=== PATIENT | female | born 1975 | race Caucasian/White ===

== ENCOUNTER 2016-06-01 11:21 | Emergency (ER) | payer OTHER ==
[~2016-06-01] VITALS: Ht 160 cm; Wt 74.0 kg
[~2016-06-01 11:21] MED LIST: OMEP20CA5 PO; SODITAB PO
[2016-06-01 11:27] VITALS: BP 118/81; PULSE 98; RESP 16; TEMP 98.3; O2SAT 100
--- NOTE | 2016-06-01 11:57 | PD ---
HPI . possible UTI Chief Complaint: Back/ Neck Pain or Injury Time Seen by Provider: 11:57 Travel History International Travel<30 days: No Contact w/Intl Traveler<30days: No Traveled to known affect area: No History of Present Illness HPI 41-year-old female with no significant past medical history here with complaints of lower back pain. Patient tells me that it started around Friday or slightly earlier. She thinks she may have a urinary tract infection. She admits to increased urinary frequency and dysuria. She has had these in the past. She denies any bowel or bladder dysfunction. She denies any saddle anesthesia. She has no other complaints. PFSH Past Medical History Cancer: No Cardiovascular Problems: Yes (HX OF REPAIR OF SEPTAL DEFECT AN ) Diabetes: No Diminished Hearing: No Endocrine: No Gastrointestinal Disorders: No Genitourinary: No Hepatitis: No Hiatal Hernia: No Hypertension: No Immune Disorder: No Medical other: No Musculoskeletal: No Psychiatric: No Reproductive: No Respiratory: No Thyroid Disease: No ?: Not : 1 Para: 1 Past Surgical History Body Medical Devices: BILATERAL CORNEA IMPLANTS, PERMANENT RETAINER Cardiac Surgery: Yes (REPAIR OF CARDIAC SEPTAL WALL 1975) Eye Surgery: Yes (BILATERAL CORNEAL IMPLANTS 1975) Pacemaker: No Valve Replacement: Yes (VALVE REPAIR CHILS) Other Surgery: Yes Social History Alcohol Use: No Tobacco Use: No Substance Use: No Allergies-Medications (Allergen,Severity, Reaction): Coded Allergies: Amoxicillin (Unverified Allergy, Severe, RASH, 06/01/16) Bactrim (Unverified Allergy, Severe, RASH, 06/01/16) Reported Meds & Prescriptions Reported Meds & Active Scripts Active Cipro (Ciprofloxacin HCl) 500 Mg Tab 500 Mg PO BID Review of Systems General / Constitutional: No: Fever Eyes: No: Visual changes HENT: No: Headaches Cardiovascular: No: Chest Pain or Discomfort Respiratory: No: Shortness of Breath Gastrointestinal: No: Abdominal Pain Genitourinary: Positive: Urgency, Frequency, Dysuria Musculoskeletal: No: Pain Skin: No Rash Neurologic: No: Weakness Psychiatric: No: Depression Endocrine: No: Polydipsia Hematologic/Lymphatic: No: Easy Bruising Physical Exam Narrative GENERAL: AAO x 3, no acute distress, Well-nourished, well-developed patient. SKIN: Warm and dry. No visible rashes or bruising. HEAD: Normocephalic and atraumatic. EYES: No scleral icterus. No injection or drainage. ENT: No nasal drainage noted. Mucous membranes pink. Airway patent. NECK: Supple, trachea midline. No JVD. CARDIOVASCULAR: Regular rate and rhythm without murmurs, gallops, or rubs. RESPIRATORY: Breath sounds equal bilaterally. No accessory muscle use. No rhonchi or rales. GASTROINTESTINAL: Abdomen soft, non-tender, nondistended. EXTREMITIES: No cyanosis or edema. BACK: Nontender without obvious deformity. No CVA tenderness. PSYCH: AAO x 3, normal affect. Data Data Last Documented VS Vital Signs Date Time Temp Pulse Resp B/P Pulse Ox O2 Delivery O2 Flow Rate FiO2 06/01/16 11:27 98.3 98 16 118/81 100 Orders Urinalysis - C+S If Indicated (06/01/16 11:59) Ed Urine Pregnancytest Poc (06/01/16 12:10) Labs Laboratory Tests Test 06/01/16 12:10 Urine Collection Type CLEAN CATCH Urine Color YELLOW Urine Turbidity CLEAR Urine pH 5.5 Urine Specific Reasnor 1.008 Urine Protein NEG mg/dL Urine Glucose (UA) NEG mg/dL Urine Ketones NEG mg/dL Urine Occult Blood NEG Urine Nitrite NEG Urine Bilirubin NEG Urine Leukocyte Esterase TRACE Urine WBC 0-2 /hpf Urine Squamous Epithelial > 8 /hpf Cells Urine Transitional Epithelial /hpf Cells Urine Bacteria RARE /hpf Microscopic Urinalysis Comment CULT NOT INDICATED Urine Collection Time 12:10 [facility] Medical Decision Making Medical Screen Exam Complete: Yes Emergency Medical Condition: Yes Medical Record Reviewed: Yes Differential Diagnosis UTI, pyelonephritis, lumbosacral strain Narrative Course 41-year-old female with no significant past medical history here with complaints of lower back pain. Patient tells me that it started around Friday or slightly earlier. She thinks she may have a urinary tract infection. She admits to increased urinary frequency and dysuria. She has had these in the past. She denies any bowel or bladder dysfunction. She denies any saddle anesthesia. She has no other complaints. Recommend UA and test. Patient is allergic to amoxicillin and Bactrim. Laboratory Tests Test 06/01/16 12:10 Urine Collection Type CLEAN CATCH Urine Color YELLOW Urine Turbidity CLEAR Urine pH 5.5 Urine Specific Reasnor 1.008 Urine Protein NEG mg/dL Urine Glucose (UA) NEG mg/dL Urine Ketones NEG mg/dL Urine Occult Blood NEG Urine Nitrite NEG Urine Bilirubin NEG Urine Leukocyte Esterase TRACE Urine WBC 0-2 /hpf Urine Squamous Epithelial > 8 /hpf Cells Urine Transitional Epithelial /hpf Cells Urine Bacteria RARE /hpf Microscopic Urinalysis Comment CULT NOT INDICATED Urine Collection Time 12:10 I discussed with the patient that there are not really any significant findings on her UA. However since she is symptomatic we will go ahead and treat with Cipro. She is in agreement and thanked me. She verbalized she has taken Cipro without any issues in the past. Patient verbalized understanding of instructions, questions were answered, and thanked me for their care. I advised them if their condition worsens, please return to the nearest emergency room for further care. Diagnosis Primary Impression: Urinary tract infection Qualified Code: N30.00 - Acute cystitis without hematuria Patient Instructions: Dysuria (ED), General Instructions Med/Other Pt SpecificInfo: Prescription(s) given Scripts Ciprofloxacin (Cipro)500 Mg Yco353 Mg PO BID #10 TAB Prov:Iveth Baker MD 06/01/16 Disposition: 01 DISCHARGE HOME Condition: Stable Payal Dyson Jun 01, 2016 11:57
[2016-06-01 12:24] LABS: BLOOD, URINE NEG (NEG); GLUCOSE,URINE NEG (NEG); KETONE, URINE NEG (NEG); NITRITE,URINE NEG (NEG); PH, URINE 5.5 (5.0-8.5)
[2016-06-01 12:29] LABS: METHOD OF COLLECTION CLEAN CATCH
[2016-06-01 12:36] LABS: URINE COLOR YELLOW (YELLW/STRAW)
[2016-06-01 12:37] LABS: BACTERIA, URINE RARE /hpf; COMMENT (UR) CULT NOT INDICATED; CULTURE IF INDICATED CULT NOT INDICATED; SQUAMOUS EPITHELIAL CELL URINE > 8 /hpf (0-5); WBC, URINE 0-2 /hpf (0-5)
[2016-06-01] MEDS ORDERED: CIPR-9 PO (12:37)
== END 2016-06-01 12:54 | disposition home or self-care (01) ==
LOC: PHEFT 11:21
DX: N39.0 Urinary tract infection, site not specified (principal); R35.0 Frequency of micturition; R30.0 Dysuria
CPT/HCPCS: 81001; 84703; 99283

== ENCOUNTER → 2016-07-29 | Outpatient (CLI) | payer OTHER ==
[~2016-07-29] MED LIST changes: +CIPR-9 PO; +IBUP-232 PO; -OMEP20CA5 PO; +OXYC1TAB63 PO; -SODITAB PO; +ZITH250T PO
[2016-07-29 12:35] LABS: MEAN CORPUSCULAR HGB CONC 28.3 % (32.0-36.0)
[2016-07-29 13:39] LABS: AUTOMATED NEUTROPHIL # 4.6 TH/MM3 (1.8-7.7); BASOPHIL # 0.1 TH/MM3 (0-0.2); BASOPHIL % 0.9 % (0.0-2.0); EOSINOPHIL # 0.2 TH/MM3 (0-0.4); EOSINOPHIL % 3.2 % (0.0-4.0); HEMATOCRIT 22.7 % (35.0-46.0); LYMPHOCYTE # 1.5 TH/MM3 (1.0-4.8); MEAN CELL VOLUME 56.4 FL (80.0-100.0); MONO % 8.8 % (0.0-8.0); NEUT % 66.1 % (16.0-70.0); PLATELET COUNT 342 TH/MM3 (150-450); RED BLOOD COUNT 4.03 MIL/MM3 (4.00-5.30); RED CELL DISTRIBUTION WIDTH 18.9 % (11.6-17.2)
[2016-07-29 13:43] LABS: HEMO FLAGS AUTO DIFF
[2016-07-29 13:51] LABS: BACTERIA, URINE FEW /hpf; BLOOD, URINE NEG (NEG); GLUCOSE,URINE NEG (NEG); KETONE, URINE NEG (NEG); MUCUS URINE FEW /lpf (OCC); NITRITE,URINE NEG (NEG); PH, URINE 6.5 (5.0-8.5); SQUAMOUS EPITHELIAL CELL URINE 6 /hpf (0-5); URINE COLOR LIGHT-YELLOW (YELLW/STRAW)
[2016-07-29 14:06] LABS: ANION GAP 5 MEQ/L (5-15); BICARBONATE 24.2 MEQ/L (21.0-32.0); BLOOD UREA NITROGEN 9 MG/DL (7-18); CHLORIDE 110 MEQ/L (98-107); GLOMERULAR FILTRATION RATE 95 ML/MIN (>89); GLUCOSE,FASTING 90 MG/DL (74-99); POTASSIUM 3.8 MEQ/L (3.5-5.1); SODIUM (NA) 139 MEQ/L (136-145)
[2016-07-29 14:10] LABS: BHCG SCREEN QUALITATIVE LESS THAN 1 MIU/ML (0-5)
[2016-07-29 14:40] LABS: OVALOCYTES 1+ (NORMAL); SCAN/DIFF AUTO DIFF CONFIRMED; TEARDROP RBCS 1+ (NORMAL)
== END ==
LOC: CPRE 12:25
PROVIDERS: ATTEND Obstetrics & Gynecology
DX: Z01.812 Encounter for preprocedural laboratory examination (principal); N92.0 Excessive and frequent menstruation with regular cycle; N94.6 Dysmenorrhea, unspecified
CPT/HCPCS: 36415; 80048; 81001; 84703; 85025

== ENCOUNTER → 2016-07-30 | Outpatient (CLI) | payer OTHER ==
[~2016-07-30] MED LIST changes: -CIPR-9 PO
[2016-07-30 07:46] LABS: HEMATOCRIT 23.3 % (35.0-46.0)
[2016-07-30 07:55] LABS: REVIEW FLAG FINAL
== END ==
LOC: CLAB 07:24
PROVIDERS: ATTEND Obstetrics & Gynecology
DX: R89.9 Unspecified abnormal finding in specimens from other organs, systems and tissues (principal)
CPT/HCPCS: 36415; 85014; 85018

== ENCOUNTER 2016-07-31 10:19 | Observation (INO) | payer OTHER ==
[~2016-07-31] VITALS: Ht 160 cm; Wt 72.5 kg
[2016-08-06 18:22] VITALS: BP 134/69; PULSE 88; RESP 16; TEMP 98.8; O2SAT 100
[2016-08-06] MEDS ORDERED: ACETAMINOPHEN 325 MG TAB PO ONE (20:15)
[2016-08-06] MEDS ORDERED: ZOLPIDEM TARTRATE 5 MG TAB PO PRN (20:15)
[2016-08-06] MEDS ORDERED: diphenhydrAMINE HCL 50 MG/ML VIAL IV ONE (20:15)
[2016-08-06 21:13] LABS: MEAN CORPUSCULAR HGB CONC 28.9 % (32.0-36.0)
[2016-08-07] VITALS (9 sets, daily range): BP systolic 103–121; BP diastolic 55–85; PULSE 65–78; RESP 16–20; TEMP 97.1–98.6; O2SAT 68–100
[2016-08-07] MEDS ORDERED: ceFAZolin INJ 1,000 MG VIAL ONE (07:56)
[2016-08-07] MEDS ORDERED: SODIUM CHLORIDE 0.9% INJ 100 ML ONE (07:57)
[2016-08-07 07:59] LABS: AUTOMATED NEUTROPHIL # 5.5 TH/MM3 (1.8-7.7); BASOPHIL # 0.1 TH/MM3 (0-0.2); BASOPHIL % 0.8 % (0.0-2.0); EOSINOPHIL # 0.2 TH/MM3 (0-0.4); EOSINOPHIL % 2.8 % (0.0-4.0); HEMATOCRIT 32.9 % (35.0-46.0); LYMPH % 18.5 % (9.0-44.0); LYMPHOCYTE # 1.4 TH/MM3 (1.0-4.8); MEAN CELL VOLUME 64.9 FL (80.0-100.0); MEAN CORPUSCULAR HEMOGLOBIN 18.7 PG (27.0-34.0); MONO % 7.1 % (0.0-8.0); NEUT % 70.8 % (16.0-70.0); PLATELET COUNT 283 TH/MM3 (150-450); RED BLOOD COUNT 5.07 MIL/MM3 (4.00-5.30); RED CELL DISTRIBUTION WIDTH 29.2 % (11.6-17.2); WHITE BLOOD COUNT 7.7 TH/MM3 (4.0-11.0)
[2016-08-07] MEDS ORDERED: ceFAZolin 1,000 MG/NS 100 ML IV ONE ×2 (08:00)
[2016-08-07] MEDS ORDERED: ACETAMINOPHEN 1000 MG/100 ML VIAL IV ONE (08:02)
[2016-08-07] MEDS ORDERED: MIDAZOLAM HCL 2 MG/2 ML VIAL ONE (08:02)
[2016-08-07] MEDS ORDERED: FAMOTIDINE 20 MG/2 ML VIAL ONE (08:02)
[2016-08-07 08:17] LABS: HEMO FLAGS AUTO DIFF
[2016-08-07 08:25] LABS: ANION GAP 9 MEQ/L (5-15); AST (GOT) 21 U/L (15-37); BICARBONATE 23.8 MEQ/L (21.0-32.0); BLOOD UREA NITROGEN 11 MG/DL (7-18); CHLORIDE 108 MEQ/L (98-107); GLOMERULAR FILTRATION RATE 91 ML/MIN (>89); POTASSIUM 3.8 MEQ/L (3.5-5.1); SODIUM (NA) 141 MEQ/L (136-145)
[2016-08-07 08:30] LABS: ALKALINE PHOSPHATASE 93 U/L (45-117); ALT (GPT) 22 U/L (10-53); TOTAL BILIRUBIN ADULT 1.9 MG/DL (0.2-1.0)
[2016-08-07 10:04] LABS: POLYCHROMASIA 2.7 % (0.0-1.9)
[2016-08-07 10:05] LABS: ACANTHOCYTES 1+ (NORMAL); OVALOCYTES 1+ (NORMAL); SCAN/DIFF AUTO DIFF CONFIRMED; TEARDROP RBCS 1+ (NORMAL)
[2016-08-07] MEDS ORDERED: oxyCODONE/ACETAMINOPHEN 5 MG/325 MG TAB PO PRN (10:30)
[2016-08-07] MEDS ORDERED: SODIUM CHLORIDE 0.9% FLUSH 10 ML FLUSH IV FLUSH PRN (10:30)
[2016-08-07] MEDS ORDERED: IBUPROFEN 600 MG TAB PO PRN (10:30)
[2016-08-07] MEDS ORDERED: HYDROmorphone HCL PF 1 MG/ML VIAL IVP PRN (10:30)
[2016-08-07] MEDS ORDERED: ONDANSETRON HCL 4 MG/2 ML VIAL IVP PRN (10:30)
[2016-08-07] MEDS ORDERED: ZOLPIDEM TARTRATE 5 MG TAB PO PRN (10:30)
[2016-08-07] MEDS ORDERED: *ONDANSETRON 4 MG VIAL PERIprocedural Use ONLY ONE (10:51)
[2016-08-07] MEDS ORDERED: DO NOT ADM ANY ANTICOAGULANT DRUGS PRN (11:15)
[2016-08-07] MEDS: LACTATED RINGER'S 1000 ML INJ 1,000 ML IV SCH (14:08)
[2016-08-07] MEDS: DOCUSATE SODIUM 100 MG CAP PO SCH ×2 (14:16→22:30)
[2016-08-07] MEDS ORDERED: KETOROLAC TROMETHAMINE 60 MG/2 ML (IM) VIAL IM ONE (15:13)
[2016-08-07] MEDS ORDERED: LACTATED RINGER'S 1000 ML INJ 1,000 ML IV ONE (15:13)
[2016-08-07] MEDS ORDERED: PROPOFOL 200 MG/20 ML AMP IV ONE (15:13)
[2016-08-07] MEDS ORDERED: NEOSTIGMINE METHYLSULFATE 10 MG/10 ML VIAL IV PUSH ONE (15:13)
[2016-08-07] MEDS ORDERED: ONDANSETRON HCL 4 MG/2 ML VIAL IV PUSH ONE (15:13)
[2016-08-07] MEDS: ONDANSETRON ODT 4 MG TAB PO PRN (20:04)
[2016-08-07] MEDS: oxyCODONE/ACETAMINOPHEN 5 MG/325 MG TAB PO PRN (20:04)
[2016-08-07] MEDS: SODIUM CHLORIDE 0.9% FLUSH 10 ML FLUSH IV FLUSH SCH (21:00)
[2016-08-07 21:02] LABS: MEAN CORPUSCULAR HGB CONC 29.4 % (32.0-36.0)
[2016-08-08] VITALS: BP 109/55; PULSE 80; RESP 16; TEMP 97.1; O2SAT 99
[2016-08-08] MEDS: ONDANSETRON ODT 4 MG TAB PO PRN (01:13)
[2016-08-08] MEDS: oxyCODONE/ACETAMINOPHEN 5 MG/325 MG TAB PO PRN ×3 (01:14→12:22)
[2016-08-08] MEDS: LACTATED RINGER'S 1000 ML INJ 1,000 ML IV SCH (01:18)
[2016-08-08 05:00] VITALS: BP 119/62; PULSE 65; RESP 16; TEMP 97.1; O2SAT 99
[2016-08-08 06:22] LABS: BASOPHIL % 0.4 % (0.0-2.0); EOSINOPHIL % 0.3 % (0.0-4.0); HEMATOCRIT 28.2 % (35.0-46.0); LYMPH % 11.9 % (9.0-44.0); LYMPHOCYTE # 1.5 TH/MM3 (1.0-4.8); MEAN CELL VOLUME 65.2 FL (80.0-100.0); MEAN CORPUSCULAR HEMOGLOBIN 19.1 PG (27.0-34.0); MONO % 5.6 % (0.0-8.0); NEUT % 81.8 % (16.0-70.0); PLATELET COUNT 269 TH/MM3 (150-450); RED BLOOD COUNT 4.32 MIL/MM3 (4.00-5.30); RED CELL DISTRIBUTION WIDTH 29.5 % (11.6-17.2); WHITE BLOOD COUNT 12.2 TH/MM3 (4.0-11.0)
[2016-08-08 06:24] LABS: HEMO FLAGS AUTO DIFF
[2016-08-08 06:39] LABS: BICARBONATE 25.7 MEQ/L (21.0-32.0); POTASSIUM 4.1 MEQ/L (3.5-5.1)
[2016-08-08 07:06] LABS: OVALOCYTES 1+ (NORMAL); SCAN/DIFF AUTO DIFF CONFIRMED; TEARDROP RBCS 1+ (NORMAL)
[2016-08-08 07:50] VITALS: BP 124/59; PULSE 63; RESP 20; TEMP 98.4; O2SAT 97
--- NOTE | 2016-08-08 08:14 | HHI.PR ---
Subjective Remarks Doing well, pain is well controlled, eating well. Objective Vital Signs Vital Signs Date Time Temp Pulse Resp B/P Pulse Ox O2 Delivery O2 Flow Rate FiO2 08/08/16 05:00 97.1 65 16 119/62 99 08/08/16 00:00 97.1 80 16 109/55 99 08/07/16 20:00 98.3 76 16 112/57 99 08/07/16 15:50 98.5 71 20 118/59 96 08/07/16 12:09 97.1 72 18 106/85 68 08/07/16 11:45 97.7 71 17 114/65 100 Nasal Cannula 2 08/07/16 11:30 77 15 128/63 100 Nasal Cannula 2 08/07/16 11:15 68 15 118/65 100 Nasal Cannula 2 08/07/16 11:00 68 16 118/65 100 Nasal Cannula 2 08/07/16 10:45 74 15 116/61 100 Nasal Cannula 2 08/07/16 10:29 97.8 70 15 113/60 100 Nasal Cannula 2 I/O 08/07/16 08/07/16 08/07/16 08/08/16 08/08/16 08/08/16 07:00 15:00 23:00 07:00 15:00 23:00 Intake Total 1530 ml 250 ml 240 ml Output Total 2200 ml 325 ml 650 ml Balance -670 ml -75 ml -410 ml Intake Oral 180 ml 250 ml 240 ml IV Total 150 ml Other 1200 ml Output Urine Total 2100 ml 325 ml 650 ml Estimated Blood Loss 100 ml # Voids 1 Result Diagram: 08/08/16 0513 08/08/16 0513 Objective Remarks Chest is clear, regular rate and rhythm. Abdomen is soft and non-distended. Incision is clean and dry. Ext no CCE. A/P Assessment and Plan Post Op Day 1 Doing well Home today and return to office in two weeks. Ambreen Pardo MD August 08, 2016 08:14
[2016-08-08] MEDS ORDERED: IBUP-232 PO (08:17)
[2016-08-08] MEDS ORDERED: OXYC1TAB63 PO (08:17)
[2016-08-08] MEDS: DOCUSATE SODIUM 100 MG CAP PO SCH (09:07)
[2016-08-08] MEDS: SODIUM CHLORIDE 0.9% FLUSH 10 ML FLUSH IV FLUSH SCH (09:10)
[2016-08-08 11:56] VITALS: BP 101/56; PULSE 81; RESP 20; TEMP 98.2; O2SAT 98
--- NOTE | 2016-08-08 12:16 | HHI.DCPOC ---
Discharge Care Plan Diagnosis: (1) History of LAVH Report Symptoms to Your Doctor -Temperate above 100.5 degrees -Redness, of incision or excessive or foul smelling drainage -Unusual pain or calf pain -Increased vaginal bleeding -Painful or difficulty urinating -Feelings of extreme sadness or anxiety after 2 weeks Goals to Promote Your Health * To prevent worsening of your condition and complications * To maintain your health at the optimal level Directions to Meet Your Goals Take your medications as prescribed Follow your dietary instruction Follow activity as directed Ensure plenty of rest for recovery Drink fluids for hydration Keep your appointments as scheduled Take your immunizations and boosters as scheduled If your symptoms worsen call your PCP, if no PCP go to Urgent Care Center or Emergency Room Smoking is Dangerous to Your Health. Avoid second hand smoke Call the 24-hour crisis hotline for domestic abuse at Pr[facility]ford August 08, 2016 12:16
--- NOTE | 2016-08-09 08:29 | MP ---
cc: Ambreen PARDO MD DATE OF SURGERY 08/07/16 PREOPERATIVE DIAGNOSIS 1. Severe menorrhagia 2. Dysmenorrhea. POSTOPERATIVE DIAGNOSIS 1. Severe menorrhagia 2. Dysmenorrhea. 3. Large fibroids PROCEDURE Laparoscopic-assisted vaginal hysterectomy and bilateral salpingectomy ANESTHESIA General endotracheal intubation SURGEON Ambreen Pardo MD FINDINGS Examination under anesthesia - the vagina was clean. The cervix was clean without lesions. The uterus was 8-10 weeks size and irregular. The adnexa negative for masses. Laparoscopic exam revealed normal ovaries bilaterally, normal tubes. The uterus had several myomas, the largest anterior to the lower uterine segment which made the bladder flap quite difficult. The posterior cul-de-sac did have several little pieces of endometriosis which were coagulated. The upper abdomen and GI tract were normal. COMPLICATIONS None. COUNTS Correct. ESTIMATED BLOOD LOSS 100 mL FLUIDS Crystalloids. DISPOSITION The patient tolerated the procedure well and went to recovery room in good condition. INDICATION This is a lady who had been bleeding very heavily. In fact, she bled down so far to a hemoglobin of 6.4. She was placed in the hospital the night before to get two units of blood in her so we could proceed with the surgery. I had discussed previously the risks and benefits of this procedure with blood versus just stopping her period totally and giving her a couple of weeks or months to build her blood count up. She chose to get the blood the night before. PROCEDURE IN DETAIL The patient was taken to the operating room, identified by name band and verbally given a general anesthetic and placed in dorsal lithotomy position. She was prepped and draped in the usual sterile fashion and a time-out was taken. Once we all agreed, proceeded with the examination under anesthesia and placing the Lazcano catheter. A weighted speculum was placed in the vagina, the anterior lip of the cervix grasped with a single-tooth tenaculum. The cervix was then cannulized with a Hulka clamp for uterine manipulation. Changing our gloves, we went to the umbilical area. A small subumbilical incision was made and a #5 trocar was introduced under direct vision without difficulty. A pneumoperitoneum was created with 3 liters of CO2. Inferior lateral to the umbilicus on the left we put a 10-mm port under direct vision and a 5-mm port on the right for manipulation. At this point we placed her in Trendelenburg, visualized all the internal organs and proceeded with the hysterectomy. The round ligaments were taken down bilaterally and a bladder flap was created with the harmonic 7 scalpel. The mesosalpinx of the fallopian tubes were then taken down with harmonic scalpel and the broad ligament was taken down to the level of the uterine vessels without difficulty. The uterine vessels were skeletonized and taken to the level of the internal cervical os with the harmonic scalpel. Hemostasis was excellent. Once this had been accomplished the uterus blanched nicely. The bladder flap was pushed back a little farther out of harm's way and, using the harmonic scalpel, we transected the cervix without difficulty after removing the Hulka clamp. Once this had been accomplished the Kleppinger forceps was used to burn the endocervix and the cervical bed. Small bleeders were coagulated with the Kleppinger and a large amount of fluid was used to clean the pelvis out. At this point to the morcellator was placed into the 12-mm port and the specimen was morcellated without difficulty. We turned this in for pathologic evaluation, then we cleaned out the gutters and the cul-de-sac with a large amount of fluid and placed a piece of Interceed over the cervical stump to prevent adhesions. At this point and the 10-mm port was removed and the fascia was repaired with a 2-0 Vicryl. The air was released through the second puncture and the laparoscope was removed under direct vision without difficulty. The skin was repaired with a 4-0 Monocryl in a subcuticular manner. At this point all the instruments were removed. She tolerated the procedure well and went to the recovery room in good condition. R. MD NICHELLE Restrepo/ /10:30 AM /8:26 AM
== END 2016-08-08 13:00 | disposition home or self-care (01) ==
LOC: HOCA 08-06 18:10 → UNDOADMIN 08-06 18:10 → HOCA 08-07 10:25 → INTOOBSV 08-07 10:25
PROVIDERS: ADMIT Obstetrics & Gynecology; ATTEND Obstetrics & Gynecology
DX: D25.9 Leiomyoma of uterus, unspecified (principal); N87.9 Dysplasia of cervix uteri, unspecified; N80.0 Endometriosis of uterus; N92.0 Excessive and frequent menstruation with regular cycle; N94.6 Dysmenorrhea, unspecified; D64.9 Anemia, unspecified
CPT/HCPCS: 36430; 58554; 80048; 80053; 85025; 86850; 86900; 86901; 86920; 88307; 94150; G0378; J0131; J0690; J1170; J1200; J1885; J2250; J2405; J2710; J3010; J7120; P9016

== ENCOUNTER 2016-09-20 01:27 | Emergency (ER) | payer OTHER ==
[~2016-09-20 01:27] MED LIST changes: -ZITH250T PO
[2016-09-20 01:28] VITALS: BP 130/68; PULSE 84; RESP 16; TEMP 98.1; O2SAT 100
[2016-09-20] MEDS ORDERED: ZITH250T PO (01:54)
--- NOTE | 2016-09-20 01:58 | PD ---
HPI Chief Complaint: ENT Complaint Time Seen by Provider: 01:55 Travel History International Travel<30 days: No Contact w/Intl Traveler<30days: No Traveled to known affect area: No History of Present Illness HPI 41-year-old white female presents to emergency Department with complaints of right ear pain for the past 5 days. She states that she's been having the sensation of water in her ear draining to the back of her throat. She's had problems with ears are off in the past. She denies any fever or chills. She has some sinus congestion but no sore throat. No nausea vomiting. No abdominal pain or diarrhea. No dysuria or frequency. Symptoms are moderate. PFSH Past Medical History Heart Rhythm Problems: No Cancer: No Cardiovascular Problems: Yes (HX OF REPAIR OF SEPTAL DEFECT AN INFANT) Chest Pain: No Congestive Heart Failure: No Diabetes: No Diminished Hearing: No Endocrine: No Gastrointestinal Disorders: No Genitourinary: No Hepatitis: No Hiatal Hernia: No Hypertension: No Immune Disorder: No Musculoskeletal: No Neurologic: No Psychiatric: No Reproductive: Yes (THICKENED LINING OF UTERUS) Respiratory: No Thyroid Disease: No Tetanus Vaccination: > 5 Years ?: Not : 3 Para: 1 Miscarriage: 2 Past Surgical History Body Medical Devices: BILATERAL CORNEA IMPLANTS, PERMANENT RETAINER Cardiac Surgery: Yes (REPAIR OF CARDIAC SEPTAL WALL 1975) Eye Surgery: Yes (BILATERAL CORNEAL IMPLANTS 1975) Gynecologic Surgery: Yes (D+C) Hysterectomy: Yes Pacemaker: No Valve Replacement: Yes (VALVE REPAIR CHILS) Other Surgery: Yes (D&C 2012, Corneal transplants in 1975) Social History Alcohol Use: Yes (OCC) Tobacco Use: No Substance Use: No Allergies-Medications (Allergen,Severity, Reaction): Coded Allergies: Amoxicillin (Unverified Allergy, Severe, RASH, 09/20/16) Bactrim (Unverified Allergy, Severe, RASH, 09/20/16) Reported Meds & Prescriptions Reported Meds & Active Scripts Active Zithromax (Azithromycin) 250 Mg Tab 250 Mg PO DIRECTED Take 2 tabs (500 mg) on day 1 then 1 tab daily x 4 days. Oxycodone-Acetaminophen 5-325 mg Tab 1 Tab PO Q4H Ibuprofen 600 Mg Tab 600 Mg PO Q6H Review of Systems Except as stated in HPI: all other systems reviewed are Neg Physical Exam Narrative GENERAL: Well-developed, well-nourished in no acute distress. Nontoxic appearing. HEAD: Normocephalic, atraumatic. EYES: Pupils equal round and reactive. Extraocular motions intact. No scleral icterus. No injection or drainage. ENT: The right TM is distended and mildly erythematous. The left TMs clear without erythema. The external auditory canals clear. Nose: clear . Posterior pharynx is pink and moist. No tonsillar edema or exudate. Uvula midline. Airway patent. NECK: Trachea midline.Supple, nontender, moves head freely. No central bony tenderness or spasm. CARDIOVASCULAR: Regular rate and rhythm without murmurs, gallops, or rubs. RESPIRATORY: Clear to auscultation. Breath sounds equal bilaterally. No wheezes , rales, or rhonchi. GASTROINTESTINAL: Abdomen soft, non-tender, nondistended. No hepato-splenomegaly , or palpable masses. No guarding. EXTREMITIES: No clubbing, cyanosis, or edema. No joint tenderness, effusion, or edema noted. BACK: Nontender without deformity or crepitance. No flank tenderness. Data Data Last Documented VS Vital Signs Date Time Temp Pulse Resp B/P Pulse Ox O2 Delivery O2 Flow Rate FiO2 09/20/16 01:28 98.1 84 16 130/68 100 Room Air Orders Azithromycin (Zithromax) (09/20/16 02:00) [facility] Medical Decision Making Medical Screen Exam Complete: Yes Emergency Medical Condition: Yes Medical Record Reviewed: Yes Differential Diagnosis Differential diagnoses: Otitis media, otitis externa, mastoiditis Narrative Course Patient's given Zithromax 500 mg by mouth. This a right otitis media Diagnosis Primary Impression: Right otitis media Qualified Code: H65.91 - Right non-suppurative otitis media Additional Instructions: Rest. Increase fluids. Afrin nasal spray for the next few days. Sudafed. Zithromax. Tylenol and Advil for pain. Follow-up with your medical doctor in one week. Return to the ER for emergencies. Med/Other Pt SpecificInfo: Prescription(s) given Scripts Azithromycin (Zithromax)250 Mg Wnx847 Mg PO DIRECTED #6 TAB Take 2 tabs (500 mg) on day 1 then 1 tab daily x 4 days. Prov:Denia Kasper MD 09/20/16 Disposition: 01 DISCHARGE HOME Condition: Stable Tip Luciano Sep 20, 2016 01:58
[2016-09-20] MEDS ORDERED: AZITHROMYCIN 250 MG TAB PO ONE (02:00)
== END 2016-09-20 02:14 | disposition home or self-care (01) ==
LOC: NEPD 01:27
DX: H65.91 Unspecified nonsuppurative otitis media, right ear (principal); R09.81 Nasal congestion
CPT/HCPCS: 99283

== ENCOUNTER 2017-01-05 07:46 | Emergency (ER) | payer OTHER ==
[~2017-01-05 07:46] MED LIST changes: +ZITH250T PO
[2017-01-05 07:57] VITALS: BP 119/78; PULSE 87; RESP 18; TEMP 98.9; O2SAT 97
--- NOTE | 2017-01-05 08:17 | PD ---
HPI Chief Complaint: Injury Time Seen by Provider: 07:56 Travel History International Travel<30 days: No Contact w/Intl Traveler<30days: No Traveled to known affect area: No History of Present Illness HPI is a 41-year-old female presents emergency department for evaluation of left foot pain. Patient states she was walking downstairs yesterday slipped and missed the last 2 steps. She states she thinks she rotated her foot. She is complaining of dorsum of left foot pain. Denies any pain head injury neck injury or other extremity pain. Denies any loss of consciousness shortness of breath or chest pain. PFSH Past Medical History Heart Rhythm Problems: No Cancer: No Cardiovascular Problems: Yes (HX OF REPAIR OF SEPTAL DEFECT AN INFANT) Chest Pain: No Congestive Heart Failure: No Diabetes: No Diminished Hearing: No Endocrine: No Gastrointestinal Disorders: No Genitourinary: No Hepatitis: No Hiatal Hernia: No Hypertension: No Immune Disorder: No Musculoskeletal: No Neurologic: No Psychiatric: No Reproductive: Yes (THICKENED LINING OF UTERUS) Respiratory: No Thyroid Disease: No ?: Not : 3 Para: 1 Miscarriage: 2 Past Surgical History Body Medical Devices: BILATERAL CORNEA IMPLANTS, PERMANENT RETAINER Cardiac Surgery: Yes (REPAIR OF CARDIAC SEPTAL WALL 1975) Eye Surgery: Yes (BILATERAL CORNEAL IMPLANTS 1975) Gynecologic Surgery: Yes (D+C) Hysterectomy: Yes Pacemaker: No Valve Replacement: Yes (VALVE REPAIR CHILS) Other Surgery: Yes (D&C 2012, Corneal transplants in 1975) Social History Alcohol Use: Yes (OCC) Tobacco Use: No Substance Use: No Allergies-Medications (Allergen,Severity, Reaction): Coded Allergies: amoxicillin (Unverified Allergy, Severe, RASH, 01/05/17) sulfamethoxazole (Unverified Allergy, Severe, RASH, 01/05/17) trimethoprim (Unverified Allergy, Severe, RASH, 01/05/17) Reported Meds & Prescriptions Reported Meds & Active Scripts Active Ibuprofen 600 Mg Tab 600 Mg PO Q6H Zithromax (Azithromycin) 250 Mg Tab 250 Mg PO DIRECTED Take 2 tabs (500 mg) on day 1 then 1 tab daily x 4 days. Oxycodone-Acetaminophen 5-325 mg Tab 1 Tab PO Q4H Review of Systems Except as stated in HPI: all other systems reviewed are Neg Physical Exam Narrative GENERAL: Well-nourished, well-developed patient. SKIN: Focused skin assessment warm/dry. HEAD: Normocephalic. EYES: No scleral icterus. No injection or drainage. NECK: Supple, trachea midline. No JVD or lymphadenopathy. CARDIOVASCULAR: Regular rate and rhythm without murmurs, gallops, or rubs. RESPIRATORY: Breath sounds equal bilaterally. No accessory muscle use. GASTROINTESTINAL: Abdomen soft, non-tender, nondistended. MUSCULOSKELETAL: No cyanosis, there is some minimal swelling about the dorsum of the left foot, there is a small ecchymotic area over the proximal first/ second metatarsal. No tenderness at the medial or lateral malleolus. Cap refill is brisk. Pulses motor and sensory intact, compartments soft. BACK: Nontender without obvious deformity. No CVA tenderness. Data Data Last Documented VS Vital Signs Date Time Temp Pulse Resp B/P (MAP) Pulse Ox O2 Delivery O2 Flow Rate FiO2 01/05/17 08:38 01/05/17 07:57 98.9 87 18 97 Room Air Orders Orders Foot, Complete ([id number]) (01/05/17 ) Guillermo Bandage (01/05/17 08:22) MDM Medical Decision Making Medical Screen Exam Complete: Yes Emergency Medical Condition: Yes Differential Diagnosis Strain, sprain, contusion, fracture. Narrative Course Patient's x-rays obtained of the left foot showing no acute bony abnormality. Patient is able to ambulate in the emergency department. Discussed with her symptomatic management, return to ED criteria. She is stable for discharge. Discussed with patient to follow up with her primary care physician. Diagnosis Primary Impression: Contusion of left foot Qualified Codes: S90.32XA - Contusion of left foot, initial encounter Patient Instructions: General Instructions, RICE Therapy (ED) Med/Other Pt SpecificInfo: Prescription(s) given Scripts Ibuprofen (Ibuprofen) 600 Mg Tab 600 MG PO Q6H for Pain Management, #30 TAB 1 Refill Prov: Kristian Casey MD 01/05/17 Disposition: 01 DISCHARGE HOME Condition: Stable Kristian Casey MD Jan 05, 2017 08:04
--- NOTE | 2017-01-05 08:19 | RADRPT ---
EXAM DATE/TIME: 01/05/2017 08:07 [facility] COMPARISON: No previous studies available for comparison. INDICATIONS : Fell, left foot pain MEDICAL HISTORY : None. SURGICAL HISTORY : None. ENCOUNTER: Initial ACUITY: 1 day PAIN SCORE: 8/10 LOCATION: Left foot FINDINGS: Three view examination of the left foot demonstrates no soft tissue swelling, dislocation, or fractur e. The tarsal bones appear intact. The interphalangeal and metatarsophalangeal joints are intact. The calcaneus is intact. Bony mineralization is normal. CONCLUSION: 1. Negative examination. Salbador Robin MD on January 05, 2017 at 8:17 Board Certified Radiologist. This report was verified electronically.
[2017-01-05] MEDS ORDERED: IBUP-232 PO (08:28)
== END 2017-01-05 08:39 | disposition home or self-care (01) ==
LOC: PHED 07:46
DX: S90.32XA Contusion of left foot, initial encounter (principal); Z86.79 Personal history of other diseases of the circulatory system; Z87.42 Personal history of other diseases of the female genital tract; W18.43XA Slipping, tripping and stumbling without falling due to stepping from one level to another, initial encounter
CPT/HCPCS: 73630; 99283